=== PATIENT | male | born 1980 | race Caucasian/White ===

== ENCOUNTER 2018-11-06 14:24 | Emergency (ER) | payer SELFPAY ==
--- NOTE | 2018-11-06 14:58 | UC ---
Upper Extremity HPI - HPI Summary HPI Summary: Patient presents to urgent care for evaluation of a dog bite to his left index finger. 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 The fittings finisher of the dog is in [facility] in [place]. Patient does not know whether the dog is up-to-date with immunizations and he has not taken the documentation since he's had them. Patient states he was trying to separate this male dog, female dog that was in heat when he was bitten. Patient states he clean the wound and came here. Patient states he feels his finger was questions freeness broken. Patient is very concerned that the dog will be put down. Patient's tetanus is up-to-date. Pt is RHD not immunocompromised Pt's medications reviewed this visit - History of Current Complaint Stated Complaint: LT INDEX FINGER INJURY Time Seen by Provider: 11/06/18 14:54 Hx Obtained From: Patient ?: No Onset/Duration: Sudden Onset Severity Initially: Mild Severity Currently: Mild Pain Scale Used: 0-10 Numeric Location Of Pain: Is Discrete @ - left index Aggravating Factor(s): Movement Alleviating Factor(s): Nothing Associated Signs And Symptoms: Positive: Swelling - Allergies/Home Medications Allergies/Adverse Reactions: Allergies Allergy/AdvReac Type Severity Reaction Status Date / Time No Known Allergies Allergy Verified 11/06/18 15:05 Home Medications: Home Medications Ibuprofen TAB* [Motrin TAB* 800 MG] 800 mg PO ONCE 11/06/18 [History Confirmed 11/06/18] PMH/Surg Hx/FS Hx/Imm Hx Previously Healthy: Yes - Surgical History Surgical History: Yes - Family History Known Family History: Positive: Non-Contributory - Social History 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 Lives: With Family Substance Use Type: None Review of Systems All Other Systems Reviewed And Are Negative: Yes Constitutional: Positive: Negative Skin: Positive: Other - laceration x 2 left index Physical Exam - Summary Physical Exam Summary: Vital Signs Reviewed: Yes A+Ox3, no distress Eyes: Conjunctiva Clear ENT: Hearing grossly normal Neck: Positive: Supple Respiratory: Positive: No respiratory distress, No accessory muscle use + Cardiovascular: CBT < 2 sec throughout fingertip abd soft + BS nt/nd no guarding, no distension Musculoskeletal Exam: + flex/ext MCP, PIP, DIP left index No crepitus Neurological: Positive: Alert, + sensation throughout Psychological: Positive: Normal Response To Family Skin: Positive: no rash, no ecchymosis, + edema middle phalynx left index Pt with 1.5cm laceration over left middle phalynx palmar aspect and 1cm over dorsum no active bleeding Triage Information Reviewed: Yes Procedures - Procedure Summary Procedure Summary: verbal permission to treat time out completed with RN at bedside digital block placed under usual sterile fashion pt prepped in usual, sterile fashion copious irrigation with 500ml sterile saline under pressure sutured placed pt tolerated well splint,dressing reviewed with pt wound care s/s infection return precautions - Laceration/Wound Repair 1 Location: Other - left index, volar middly phalynx Description: Linear Anesthesia: Digital, 1.0%, Lido Length, Depth and Shape: 1.5cm Betadine Prep?: Yes Irrigated w/ Saline (ccs): 500 Laceration/Wound Explored: clean Closure: Single Layer - 4 Debridement: minimal Suture Type: Nylon - 4-0 Number of Sutures: 4 Layer Closure?: No Sterile Dressing Applied?: Yes - splint applied by RN 2 Location: upper extremity - left index, dorsum,middle phalynx Description: Linear Anesthesia: 1.0%, Lido Length, Depth and Shape: 1 Irrigated w/ Saline (ccs): 500 Laceration/Wound Explored: clean Closure: Single Layer - 3 Suture Type: Vicryl - 4-0 Layer Closure?: No Sterile Dressing Applied?: Yes Diagnostics - Radiology No standard instances Radiology Interpretation Completed By: Radiologist - Patient Name: MEKHI ORLANDO Medical Record#: [id number] Ordering Physician: Esme Melissa MD Acct.#: [id number] : 1980 Age: 37 Sex: M [facility] Exam Date: 11/06/18 1528 ADM Status: REG ER Order Information: FINGER LEFT 2ND (INDEX ) Accession Number: [id number] CPT: 30918 Indication: LEFT second finger dog bite. Lacerations to anterior distal and posterior distal aspects of the second finger. Comparison: No relevant prior exams available on the [facility] for comparison. Technique: 3 views LEFT second finger. REPORT AND IMPRESSION: #. Fusiform soft tissue swelling and skin contour abnormality at the distal palmar and dorsal aspects corresponding with history of laceration. No conspicuous foreign body or gross subcutaneous emphysema. Negative for fracture or malalignment. _ <Electronically signed by Chicho Olmedo MD in [place]> 11/06/181615 Dictated By: Chicho Olmedo MD Dictated Date/Time: 11/06/18 161 Transcribed Date/Time: 11/06/181614 Copy to: CC:Esme Melissa MD; Cee Pantoja MD Imaging - [facility] Imaging - [facility] [address] [address] ph ([phone]) ph ) ph ([phone]) This report is only to be considered final once signed by the Provider(s) as displayed in the "<Electronically Signed by >" field (s). Absence of a signature indicates the report is in a draft status and still needs to be finalized. In the event this document was created by someone other than the signing Provider, the individual initiating the document will be listed in the "Entered by:" or "Dictated by:" bailey. 1 of 1 Upper Extremity Course/Dx - Course Course Of Treatment: Patient presents to urgent care for evaluation treatment of dog bite wounds to his left index finger. Patient states the dog was with him and has for 3 years. Patient does not know the status of the dog's immunizations and he has not had the doctor that. Patient states the dog is an indoor dog and behavior is normal. Dog bit him when he was from the female dog visit heat. Patient is not immunocompromised. Doubt forms completed and faxed [facility]. Nurse spoke to [facility] and nonnarcotic who states diabetes to be monitored at home for 10 days and nonvaccinated. No further intervention at this time. Patient's wounds were cleansed and closed. Reviewed closely with patient signs and symptoms of infection. Antibiotics. Wound care. Patient to return for suture removal. Patient also placed in a splint by nursing and given a note for work. Patient comfortable agreement with plan. - Differential Dx/Diagnosis Provider Diagnosis: Dog bite of index finger, Laceration Discharge - Sign-Out/Discharge Documenting (check all that apply): Patient Departure All imaging exams completed and their final reports reviewed: Yes - Discharge Plan Condition: Stable Disposition: HOME Prescriptions: Amoxicillin/Clavulanate TAB* [Augmentin TAB 875*] 875 mg PO BID #20 tab Patient Education Materials: Animal Bite (ED), Puncture Wound (ED) Forms: *Work Release Referrals: Cee Pantoja MD [Primary Care Provider] - Additional Instructions: - your stitches should come out in 9-10 days - you can return here, go to your Doctor or any urgent care center - okay to alternate ibuprofin (advil, motrin)600mg and tylenol every 3hours as needed for pain -Anticipate increased discomfort over the next several hours as the numbing medication wears off -Keep your wound clean and dry - no soaking for 24 hours. Then, okay for wound to get wet - pat dry, don't rub -apply antibiotic ointment (neosporin, polysporin) 2-3 times a day - wear finger splint as much as possible - elevate your arm to help with swelling and pain - take antibiotics as prescribed until gone - keep your wound clean - monitor for signs of infection - reddness, red streaking, odor, green drainage- if you have ANY questions, contact your doctor , return here or go to the emergency department -As discussed, you will receive a call from the [facility] department. You must monitor the dog, keeping him inside for a period of 10 days. Following this 10 days, you should have the dog vaccinated. Ifyou have ANY concerns about the dog's behavior, you and the animal must be promptly evaluated - Contact your doctor or return here with questions or concerns - Billing Disposition and Condition Condition: STABLE Disposition: Home
[2018-11-06 15:05] VITALS: BP 139/79
[2018-11-06] MEDS ORDERED: Lidocaine 2% PF * 5 ML VIAL INJ ONE (15:40)
[2018-11-06] MEDS ORDERED: Lidocaine 2% PF * 5 ML VIAL ONE (16:26)
== END 2018-11-06 17:12 | disposition home or self-care (01) ==
LOC: UCCORT 14:24
DX: S61.211A Laceration without foreign body of left index finger without damage to nail, initial encounter (principal); W54.0XXA Bitten by dog, initial encounter; Y92.9 Unspecified place or not applicable
CPT/HCPCS: 12001; 73140; 99202; G0463